=== PATIENT | male | born 1935 | race Caucasian/White ===

== ENCOUNTER 2019-02-17 11:07 | Day surgery (SDC) | payer MEDICARE, OTHER ==
[2006-06-04 10:06] VITALS: BP 152/93
[2019-02-17] VITALS (10 sets, daily range): BP systolic 95–122; BP diastolic 58–76; PULSE 74–116; TEMP 97–97.8
[~2019-02-17] VITALS: Ht 177.8 cm; Wt 89.2 kg
[2019-02-17] MEDS ORDERED: NEURONTIN300 MG/CAP PO (12:21)
[2019-02-17] MEDS ORDERED: FLOMAX 0.40.4 MG/CAP PO (12:22)
[2019-02-17] MEDS ORDERED: HCTZ 25MG TAB25 MG PO (12:22)
[2019-02-17] MEDS ORDERED: LEVAQUIN 5500 MG/TA1 PO (12:23)
[2019-02-17] MEDS ORDERED: PRINIVIL10 MG PO (12:24)
[2019-02-17] MEDS ORDERED: ZANTAC 150MG T150 MG PO (12:24)
[2019-02-17] MEDS ORDERED: TYLENOL 325MG325 MG PO (12:25)
[2019-02-17] MEDS ORDERED: LUTEIN 15 MG-0.1 SGL PO (12:26)
--- NOTE | 2019-02-17 15:45 | NUR ---
Patient up to room 346 by bed. Alert and oriented x 3. Chase to dependent drainage with clear yellow urine, CBI infusing at a fast rate. Post op VSS. Post op fluids infusing via gravity. Spouse at bedside. SCDs to BLE. Denies pain at this time. Denies further needs at this time.
--- NOTE | 2019-02-17 17:51 | NUR ---
Patient in bed resting. Denies pain at this time. CBI infusing at a moderate rate, urine peach colored. Denies further needs at this time.
--- NOTE | 2019-02-17 18:28 | NUR ---
Patient continues to deny pain or further needs at this time. Post op vss. Will report off to retail shift leader.
--- NOTE | 2019-02-17 19:00 | NUR ---
REPORT RECEIVED FROM LANA ALLISON. ASSUMED CARE FOR RADIOLOGY MANAGER. CALLED TO ROOM DUE TO C/O FEELING IF BLADDER IS FULL AND PARHAM NOT DRAINING. CBI IS NOT DRIPPING-BLADDER DISTENSION NOTED. URINE IN PARHAM BAG IS LIGHT PINK. IRRIGATED WITH NORMAL SALINE-APPROX 40MLS. PULLED BACK ON BULB SYRINGE AND 3 QUARTER SIZE CLOTS CAME OUT. CBI RUNNING MODERATELY NOW-BRIGHT RED RETURN. STATES BLADDER IS STARTING TO FEEL LESS FULL. CONTINUES TO FLOW FREELY-BRIGHT RED FOR 1200MLS. CBI SET TO RUN AT A MODERATE RATE. WILL CONTINUE TO EVALUATE FLOW.
--- NOTE | 2019-02-17 20:00 | NUR ---
CBI STILL INFUSING WITHOUT DIFFICULTY AT A MODERATE RATE. CONTINUES TO HAVE BRIGHT RED OUTPUT. DENIES PAIN/BLADDER SPASMS. WILL CONTINUE TO MONITOR.
--- NOTE | 2019-02-17 21:00 | NUR ---
CBI CONTINUES TO RUN AT A MODERATE DRIP-BRIGHT RED OUTPUT STILL NOTED. DENIES PAIN AT THIS TIME. WILL CONTINUE TO RUN CBI AT A MODERATE RATE UNTIL OUTPUT CLEARS TO A LIGHT PINK PER DR ORDER. DENIES NEEDS AT THIS TIME. WILL MONITOR.
[2019-02-18] VITALS (8 sets, daily range): BP systolic 78–124; BP diastolic 45–62; PULSE 96–117; TEMP 97.7–98.3
--- NOTE | 2019-02-18 08:40 | NUR ---
Patient in bed resing. Alert and oriented x 3. Shift assessment complete. CBI flowing at a moderate rate, judd to dependent drainge with pink urine present, occasional small clots noted in tubing. SCDs to BLE. Patient denies pain or further needs at this time.
--- NOTE | 2019-02-18 10:00 | NUR ---
Patient states relief of bladder spasms after levsin administration.
--- NOTE | 2019-02-18 10:59 | NUR ---
First visit from the seamless tube mill operator. No needs right now.
--- NOTE | 2019-02-18 12:58 | NUR ---
ERIC student met with patient to discuss discharge plan. Patient lives near [place] with his (Rico). Patient's PCP is Dr. Romeo Leal and he uses a pharmacy in [place]. Patient has multiple walkers and canes at home and only needs occasional assistance with ADLs which his provides. Patient does not currently have any home health services and states that doctors have talked about it in the past. Patient declines home health at this time. Patient does not have a DPOA-HC completed and was not interested in completing one at this time. No identified needs at this time. Patient states his Dr told him discharge should be tomorrow (02/19).
--- NOTE | 2019-02-18 17:11 | NUR ---
Patient called out to nurses station, stated he was having spasms even after levsin administration. Chase not flowing, irrigated patient and removed 3 small clots, patient state relief after irrigation. Will continue to monitor.
--- NOTE | 2019-02-18 17:41 | NUR ---
Patient in bed resting. Has been up to restroom, throughout the day, stand by assist. Refuses to sit up in chair, states he is more comfortable in bed. Chase maintained to dependent drainage with clear yellow urine, has been pink to red throughout the day. Urine red when patient out of bed. Denies spasms or pain at this time. Will report off to maintenance technician 3rd shift.
--- NOTE | 2019-02-18 18:06 | NUR ---
Patient sitting up in recliner for supper. Has been up to restroom throughout the day with walker. Chase maintained to dependent drainage with pink urine in bag, occassional clots noted. CBI infusing at moderate rate. Urine has been pink to red throughout the day. Denies pain at this time. Denies further needs at this time. Will report off to night supervisor.
--- NOTE | 2019-02-18 20:00 | NUR ---
REPORT RECEIVED FROM LANA ALLISON. ASSUMED CARE. ASSESSMENT COMPLETE. VS STABLE. DENIES PAIN/BLADDER SPASMS. CBI INFUSING AT A MODERATE RATE TO DEPENDENT DRAINAGE-LIGHT PINK IN COLOR-SMALL CLOTS NOTED. PLAN OF CARE DISCUSSED FOR JOURNEY LINEMAN. STATES HE DIDNT SLEEP WELL AT ALL LAST NIGHT-REQUESTING AMBIEN AT 2200. WILL TAKE AT REQUESTED TIME. NO OTHER C/O AT THIS TIME. TEACHING COMPLETE ON MEDICATION FOR BLADDER SPASMS AND TO CALL IF NEEDED. VERBALIZES UNDERSTANDING. CALL LIGHT WITHIN REACH. BED IN LOW POSITION. WHEELS LOCKED. WILL MONITOR.
[2019-02-19 03:46] VITALS: BP 92/62; PULSE 101; TEMP 98
--- NOTE | 2019-02-19 05:45 | NUR ---
HAS RESTED THROUGH THE NIGHT AFTER DOSE OF AMBIEN. OUTPUT REMAINED LIGHT PINK WITH OCCASIONAL SMALL 2-3 CM CLOTS. PARHAM CATH CLAMPED. PRIMED BLADDER WITH APPROX 300MLS OF NORMAL SALINE. PARHAM REMOVED. TOLERATED WELL. INSTRUCTIONS GIVEN ON VOIDING X6-REQUESTS TO USE URINAL AND TRANSFER TO CUPS. HAS VOIDED X3 ALREADY. REPORT GIVEN TO LANA FRANCIS.
[2019-02-19 08:49] VITALS: BP 97/57; PULSE 120; TEMP 97.8
[2019-02-19 09:10] VITALS: BP 107/52
[2019-02-19 15:08] VITALS: BP 89/46; PULSE 110; TEMP 97.3
--- NOTE | 2019-02-19 15:30 | NUR ---
Patient is discharging home. His urine got dark for about 2 voids but after drinking another glass of water his urine has lightened up. No clots noted. Reminded patient to drink fluids at home to help flush his bladder. No quesions verbalized. Patient already has a scheduled appointment. No prescriptions to sent with patient. Copies of discharge instructions sent with patient. Derick is helping patient get dressed and will be walking patient out via wheel chair.
== END 2019-02-19 15:30 | disposition home or self-care (01) ==
LOC: SDCO 11:07 → SURG 15:50 → SDCO 02-19 15:30
DX: N40.1 Benign prostatic hyperplasia with lower urinary tract symptoms (principal); N13.8 Other obstructive and reflux uropathy; R33.8 Other retention of urine; N39.0 Urinary tract infection, site not specified; G60.0 Hereditary motor and sensory neuropathy; K21.9 Gastro-esophageal reflux disease without esophagitis; I10 Essential (primary) hypertension; E78.00 Pure hypercholesterolemia, unspecified; Z85.46 Personal history of malignant neoplasm of prostate; Z82.49 Family history of ischemic heart disease and other diseases of the circulatory system; R20.2 Paresthesia of skin; M19.90 Unspecified osteoarthritis, unspecified site; Z79.82 Long term (current) use of aspirin; Z79.899 Other long term (current) drug therapy; Z96.642 Presence of left artificial hip joint; M48.00 Spinal stenosis, site unspecified; R00.0 Tachycardia, unspecified; Z98.890 Other specified postprocedural states
CPT/HCPCS: OP; J0690; J1100; J1885; J2250; J2405; J2704; J3010; J7120